=== PATIENT | female | born 1960 | race Caucasian/White ===

== ENCOUNTER → 2018-10-04 | Outpatient (CLI) | payer OTHER ==
--- NOTE | 2018-10-04 16:09 | Diagnostic Imaging Report ---
TECHNIQUE: Magnetic resonance imaging of the RIGHT foot was performed WITHOUT injected contrast. HISTORY: Right foot pain COMPARISON: None available. DISCUSSION: Osseous contusions to the second, third, and fifth metatarsal head and to the lateral cuboid. No hypointense T1 fracture line. Adjacent soft tissue edema. The muscle bulk preserved. Plantar plates and intermetatarsal spaces are clear IMPRESSION: Osseous contusions to the second, third, and fifth metatarsal head and lateral cuboid. Adjacent soft tissue edema. Signed by: Dr. Gabe Cm M.D. on 10/04/2018 4:06 PM
== END ==
LOC: MRI 13:13
PROVIDERS: ATTEND Podiatrist Foot & Ankle Surgery
DX: S92.351A Displaced fracture of fifth metatarsal bone, right foot, initial encounter for closed fracture (principal); M65.871 Other synovitis and tenosynovitis, right ankle and foot

== ENCOUNTER 2018-10-25 15:42 | Outpatient (RCR) | payer OTHER | END 2018-11-24 | LOC: PT 15:42 | PROVIDERS: ATTEND Podiatrist Foot & Ankle Surgery | DX: S90.31XA Contusion of right foot, initial encounter (principal); M79.671 Pain in right foot; M25.671 Stiffness of right ankle, not elsewhere classified; M62.81 Muscle weakness (generalized); R26.2 Difficulty in walking, not elsewhere classified ==